=== PATIENT | female | born 1945 | race Caucasian/White ===

== ENCOUNTER 2016-07-22 23:37 | Inpatient (IN) | payer MEDICARE ==
[~2016-07-22] VITALS: Ht 160 cm; Wt 82.6 kg
[2016-07-22] MEDS ORDERED: METOPROLOL TART25 MG ORAL (23:44)
[2016-07-22] MEDS ORDERED: METFORMIN HCL500 M1 ORAL (23:44)
[2016-07-23] VITALS: BP 138/89
[2016-07-23] MEDS ORDERED: Nitroglycerin 2% oint pkt TOPIC ONE
[2016-07-23 00:03] LABS: BASOPHILS % (AUTO) 0.9 % (0.0-2.0); EOSINOPHILS % (AUTO) 2.6 % (0.0-3.0); LYMPHOCYTES % (AUTO) 40.4 % (20.0-45.0); MEAN CORPUSCULAR HEMOGLOBIN 29.2 PG (27.0-31.0); MEAN CORPUSCULAR HGB CONC 33.3 G/DL (32.0-36.0); MEAN CORPUSCULAR VOLUME 88 FL (80-99); MEAN PLATELET VOLUME 7.6 FL (6.5-10.1); MONOCYTES % (AUTO) 6.8 % (1.0-10.0); NEUTROPHILS % (AUTO) 49.2 % (45.0-75.0); PLATELET COUNT 213 K/UL (150-450); RED BLOOD COUNT 5.11 M/UL (4.20-5.40); RED CELL DISTRIBUTION WIDTH 12.2 % (11.6-14.8); WHITE BLOOD COUNT 7.5 K/UL (4.8-10.8)
[2016-07-23 00:27] LABS: PROTHROMBIN TIME 10.5 SEC (9.30-11.50); TROPONIN I < 0.30 ng/mL (<=0.30)
[2016-07-23 00:30] LABS: ALANINE AMINOTRANSFERASE 28 U/L (3-33); ALBUMIN/GLOBULIN RATIO 1.3 (1.0-2.7); ANION GAP 14 (5-15); ASPARTATE AMINO TRANSFERASE 27 U/L (5-40); CALCIUM 9.8 mg/dL (8.6-10.2); CARBON DIOXIDE 28 mEQ/L (20-30); CHLORIDE 98 mEQ/L (98-107); CREATININE 0.9 mg/dL (0.5-0.9); GLOMERULAR FILTRATION RATE > 60 mL/min (>60); HEMOLYSIS 3; MAGNESIUM 2.3 mg/dL (1.7-2.5); POTASSIUM 4.2 mEQ/L (3.4-4.9); SODIUM 140 mEQ/L (135-145); TOTAL PROTEIN 7.2 g/dL (6.6-8.7)
[2016-07-23 00:59] LABS: APPEARANCE,URINE CLEAR; KETONES,URINE NEGATIVE (NEGATIVE); LEUKOCYTE ESTERASE ,URINE 2+ (NEGATIVE); NITRITE,URINE NEGATIVE (NEGATIVE); PH,URINE 7 (4.5-8.0); PROTEIN,URINE NEGATIVE (NEGATIVE); UROBILINOGEN,URINE NORMAL MG/DL (0.0-1.0)
--- NOTE | 2016-07-23 01:20 | Emergency Room Report ---
History of Present Illness General Chief Complaint: Chest Pain Source: Patient, EMS Present Illness HPI The patient presents with chest discomfort. She's had atrial fibrillation in the past and felt that she was heading towards another episode of that. She took extra doses of her metoprolol and another blood pressure medicine that may be benazepril. She also took aspirin. Paramedics gave her nitroglycerin and claim to have given her aspirin also. She denies chest pain but feels discomfort in her chest. She feels extra beats. She also feels discomfort in her jaw that is coming from her chest. She's had carotid endarterectomies. She's not had exercise treadmill for many years. No fevers, chills, cough, sore throat, bleeding problems, weakness, headache, NVD, dysuria, neck pain, extremity pain, change in bowels. Allergies: Coded Allergies: No Known Allergies (Unverified , 07/22/16) Patient History Past Medical History: see triage record Past Surgical History: other - carotid surgery Social History: Denies: smoking Social History Narrative at home Last Menstrual Period: N/A Reviewed Nursing Documentation: PMH: Agreed, PSxH: Agreed Nursing Documentation-PMH Past Medical History: No History, Except For Hx Cardiac Problems: Yes - Afib, Carotid surgery 2014 Hx Hypertension: Yes Review of Systems All Other Systems: negative except mentioned in HPI Physical Exam Vital Signs Date Time Temp Pulse Resp B/P Pulse Ox O2 Delivery O2 Flow Rate FiO2 07/22/16 23:40 97.9 68 16 138/89 98 Room Air Sp02 EP Interpretation: reviewed, normal General Appearance: well appearing, no apparent distress, GCS 15 Head: normocephalic Eyes: bilateral eye PERRL, bilateral eye normal inspection ENT: moist mucus membranes Neck: supple Respiratory: lungs clear, normal breath sounds Cardiovascular #1: irregularly irregular Cardiovascular #2: 2+ radial (R) Gastrointestinal: normal inspection, normal bowel sounds, non tender, no mass, non-distended Musculoskeletal: back normal, gait/station normal, normal range of motion Neurologic: alert, oriented x3, grossly normal Psychiatric: mood/affect normal Skin: normal inspection, warm/dry Medical Decision Making Diagnostic Impression: Primary Impression: Chest pain Qualified Codes: R07.9 - Chest pain, unspecified Additional Impression: Atrial arrhythmia ER Course Patient presents with chest pain. Obvious risk with prior vacular problems. DDx: ami, angina, a fib, other arrhythmia, gerd amongst others. Exam against PE. Emergent evaluation to exclude cardiac emergency. Eval with EKG, labs, cxr. Treatment with nitrolpaste. Patient declines other analgesics. EKG with atrial arrhythmia, but not a fib. CXR normal. Labs with negative troponin. Improved with observation - while sleeping, less ectopy. Needs cardiac monitoring and repeat troponins. Patient admitted tele - Dr. Romero. Laboratory Tests Test 07/22/16 23:50 07/23/16 00:35 White Blood Count 7.5 K/UL (4.8-10.8) Red Blood Count 5.11 M/UL (4.20-5.40) Hemoglobin 14.9 G/DL (12.0-16.0) Hematocrit 44.9 % (37.0-47.0) Mean Corpuscular Volume 88 FL (80-99) Mean Corpuscular Hemoglobin 29.2 PG (27.0-31.0) Mean Corpuscular Hemoglobin Concent 33.3 G/DL (32.0-36.0) Red Cell Distribution Width 12.2 % (11.6-14.8) Platelet Count 213 K/UL (150-450) Mean Platelet Volume 7.6 FL (6.5-10.1) Neutrophils (%) (Auto) 49.2 % (45.0-75.0) Lymphocytes (%) (Auto) 40.4 % (20.0-45.0) Monocytes (%) (Auto) 6.8 % (1.0-10.0) Eosinophils (%) (Auto) 2.6 % (0.0-3.0) Basophils (%) (Auto) 0.9 % (0.0-2.0) Prothrombin Time 10.5 SEC (9.30-11.50) Prothrombin Time INR 1.0 (0.9-1.1) PTT 27 SEC (23-33) Sodium Level 140 mEQ/L (135-145) Potassium Level 4.2 mEQ/L (3.4-4.9) Chloride Level 98 mEQ/L (98-107) Carbon Dioxide Level 28 mEQ/L (20-30) Anion Gap 14 (5-15) Blood Urea Nitrogen 17 mg/dL (7-23) Creatinine 0.9 mg/dL (0.5-0.9) Estimate Glomerular Filtration Rate > 60 mL/min (>60) Glucose Level 120 mg/dL (74-106) H Calcium Level 9.8 mg/dL (8.6-10.2) Magnesium Level 2.3 mg/dL (1.7-2.5) Total Bilirubin 0.4 mg/dL (0.0-1.2) Aspartate Amino Transferase (AST) 27 U/L (5-40) Alanine Aminotransferase (ALT) 28 U/L (3-33) Alkaline Phosphatase 106 U/L (35-104) H Total Creatine Kinase 74 U/L (26-140) Troponin I < 0.30 ng/mL (<=0.30) Pro-B-Type Natriuretic Peptide 121 pg/mL (0-125) Total Protein 7.2 g/dL (6.6-8.7) Albumin 4.1 g/dL (3.5-5.2) Globulin 3.1 g/dL Albumin/Globulin Ratio 1.3 (1.0-2.7) Urine Color Yellow Urine Appearance Clear Urine pH 7 (4.5-8.0) Urine Specific [place] 1.010 (1.005-1.035) Urine Protein Negative (NEGATIVE) Urine Glucose (UA) Negative (NEGATIVE) Urine Ketones Negative (NEGATIVE) Urine Occult Blood Negative (NEGATIVE) Urine Nitrite Negative (NEGATIVE) Urine Bilirubin Negative (NEGATIVE) Urine Urobilinogen Normal MG/DL (0.0-1.0) Urine Leukocyte Esterase 2+ (NEGATIVE) H Urine RBC Pending Urine WBC Pending Urine Squamous Epithelial Cells Pending Urine Bacteria Pending Urine Opiates Screen Negative (NEGATIVE) Urine Barbiturates Screen Negative (NEGATIVE) Phencyclidine (PCP) Screen Negative (NEGATIVE) Urine Amphetamines Screen Negative (NEGATIVE) Urine Benzodiazepines Screen Negative (NEGATIVE) Urine Cocaine Screen Negative (NEGATIVE) Urine Marijuana (THC) Screen Negative (NEGATIVE) EKG Diagnostic Results Rate: bradycardiac Rhythm: other - pacs ST Segments: no acute changes Rhythm Strip Diag. Results EP Interpretation: yes Rhythm: NSR, other - chiquis with frequent PACs Chest X-Ray Diagnostic Results EP Interpretation: Yes Findings: no consolidation, no effusion, no pneumothorax, no acute cardiopulmonary disease Number of Views: 1 Last Vital Signs Date Time Temp Pulse Resp B/P Pulse Ox O2 Delivery O2 Flow Rate FiO2 07/23/16 16:09 59 07/23/16 16:00 97.0 18 130/62 95 Room Air 07/23/16 12:30 21 Status: improved Disposition: ADMITTED INPATIENT Condition: Serious Referrals: NON PHYSICIAN (PCP) Laz Soler M.D. July 23, 2016 01:20
[2016-07-23 01:29] LABS: RBC,URINE 0-2 /HPF (0 - 2)
[2016-07-23 01:30] LABS: BACTERIA,URINE FEW /HPF; SQUAMOUS EPITHELIAL CELL,UR MANY /LPF (NONE/OCC)
[2016-07-23 01:44] VITALS: BP 109/53
[2016-07-23 03:00] VITALS: BP 142/60
[2016-07-23] MEDS ORDERED: DuoNeb 0.5-3(2.5)mg/3ml neb HHN PRN (07:30)
[2016-07-23] MEDS ORDERED: Miralax 17gm pkt ORAL PRN (07:30)
[2016-07-23] MEDS ORDERED: Ketorolac 30mg Inj IV PRN (07:30)
[2016-07-23] MEDS ORDERED: Diltiazem 25mg/5ml IV PRN (07:30)
[2016-07-23] MEDS ORDERED: Morphine Sulfate 2mg/ml Inj IVP PRN (07:30)
[2016-07-23] MEDS ORDERED: Enalaprilat 2.5mg/2ml Inj IV PRN (07:30)
[2016-07-23] MEDS ORDERED: Nitroglycerin Subl 0.4mg tab (Bottle Of 25) SL PRN (07:30)
[2016-07-23 08:00] VITALS: BP 128/69
[2016-07-23] MEDS ORDERED: Aspirin Baby 81mg ORAL SCH (09:00)
[2016-07-23] MEDS ORDERED: Metoprolol 25mg tab ORAL SCH (09:00)
[2016-07-23 09:22] LABS: TROPONIN I < 0.30 ng/mL (<=0.30)
--- NOTE | 2016-07-23 09:45 | Diagnostic Imaging Report ---
Indication: Chest Pain Comparison: None A single view chest radiograph was obtained. Findings: Cardiomediastinal appearance is within normal limits for age. Pulmonary vascularity is appropriate. Aorta is mildly ectatic. The diaphragmatic contour is smooth and costophrenic angles are sharp. No pleural effusions are identified. The bones are osteopenic. Impression: No acute findings
--- NOTE | 2016-07-23 10:17 | Cardiology Progress Note ---
Assessment/Plan Assessment/Plan palpitation pvc ?cp hx of paf last one 08/2015 declined anticoagulation pvd s/p r cea mild subclavian artery stenosis "insulin resistance" serial enzyme echo ekg tele observation orthostatic vital statin all discussed (previously not tolerant of lipitor but has vinh zocor ) ecotrin dtr is a function med md and tell pt not to take convectional meds want testing done at [facility] if needed [id number] Objective Last 24 Hour Vital Signs Date Time Temp Pulse Resp B/P Pulse Ox O2 Delivery O2 Flow Rate FiO2 07/23/16 08:54 57 126/69 07/23/16 08:00 97.2 52 18 128/69 97 Room Air 07/23/16 04:00 56 07/23/16 03:00 97.3 67 18 142/60 97 Room Air 07/23/16 02:25 97.9 54 16 109/53 96 Room Air 07/23/16 01:44 97.9 54 16 109/53 96 Room Air 07/23/16 00:00 68 16 Room Air 07/23/16 00:00 97.9 84 16 138/89 98 Room Air 07/22/16 23:59 138/89 07/22/16 23:40 97.9 68 16 138/89 98 Room Air Laboratory Tests Test 07/22/16 23:50 07/23/16 00:35 07/23/16 08:20 White Blood Count 7.5 K/UL (4.8-10.8) Red Blood Count 5.11 M/UL (4.20-5.40) Hemoglobin 14.9 G/DL (12.0-16.0) Hematocrit 44.9 % (37.0-47.0) Mean Corpuscular Volume 88 FL (80-99) Mean Corpuscular Hemoglobin 29.2 PG (27.0-31.0) Mean Corpuscular Hemoglobin Concent 33.3 G/DL (32.0-36.0) Red Cell Distribution Width 12.2 % (11.6-14.8) Platelet Count 213 K/UL (150-450) Mean Platelet Volume 7.6 FL (6.5-10.1) Neutrophils (%) (Auto) 49.2 % (45.0-75.0) Lymphocytes (%) (Auto) 40.4 % (20.0-45.0) Monocytes (%) (Auto) 6.8 % (1.0-10.0) Eosinophils (%) (Auto) 2.6 % (0.0-3.0) Basophils (%) (Auto) 0.9 % (0.0-2.0) Prothrombin Time 10.5 SEC (9.30-11.50) Prothromb Time International Ratio 1.0 (0.9-1.1) Activated Partial Thromboplast Time 27 SEC (23-33) Sodium Level 140 mEQ/L (135-145) Potassium Level 4.2 mEQ/L (3.4-4.9) Chloride Level 98 mEQ/L (98-107) Carbon Dioxide Level 28 mEQ/L (20-30) Anion Gap 14 (5-15) Blood Urea Nitrogen 17 mg/dL (7-23) Creatinine 0.9 mg/dL (0.5-0.9) Estimat Glomerular Filtration Rate > 60 mL/min (>60) Glucose Level 120 mg/dL (74-106) H Calcium Level 9.8 mg/dL (8.6-10.2) Magnesium Level 2.3 mg/dL (1.7-2.5) Total Bilirubin 0.4 mg/dL (0.0-1.2) Aspartate Amino Transf (AST/SGOT) 27 U/L (5-40) Alanine Aminotransferase (ALT/SGPT) 28 U/L (3-33) Alkaline Phosphatase 106 U/L (35-104) H Total Creatine Kinase 74 U/L (26-140) Troponin I < 0.30 ng/mL (<=0.30) < 0.30 ng/mL (<=0.30) Pro-B-Type Natriuretic Peptide 121 pg/mL (0-125) Total Protein 7.2 g/dL (6.6-8.7) Albumin 4.1 g/dL (3.5-5.2) Globulin 3.1 g/dL Albumin/Globulin Ratio 1.3 (1.0-2.7) Urine Color Yellow Urine Appearance Clear Urine pH 7 (4.5-8.0) Urine Specific [place] 1.010 (1.005-1.035) Urine Protein Negative (NEGATIVE) Urine Glucose (UA) Negative (NEGATIVE) Urine Ketones Negative (NEGATIVE) Urine Occult Blood Negative (NEGATIVE) Urine Nitrite Negative (NEGATIVE) Urine Bilirubin Negative (NEGATIVE) Urine Urobilinogen Normal MG/DL (0.0-1.0) Urine Leukocyte Esterase 2+ (NEGATIVE) H Urine RBC 0-2 /HPF (0 - 2) Urine WBC 2-4 /HPF (0 - 2) Urine Squamous Epithelial Cells Many /LPF (NONE/OCC) H Urine Bacteria Few /HPF (NONE) Urine Opiates Screen Negative (NEGATIVE) Urine Barbiturates Screen Negative (NEGATIVE) Phencyclidine (PCP) Screen Negative (NEGATIVE) Urine Amphetamines Screen Negative (NEGATIVE) Urine Benzodiazepines Screen Negative (NEGATIVE) Urine Cocaine Screen Negative (NEGATIVE) Urine Marijuana (THC) Screen Negative (NEGATIVE) ALVARO ROBBINS July 23, 2016 10:17
[2016-07-23] MEDS ORDERED: NovoLOG Insulin Flexpen SUBQ SCH ×2 (11:30→16:30)
[2016-07-23 12:00] VITALS: BP 124/56
--- NOTE | 2016-07-23 13:28 | History and Physical ---
History of Present Illness General Date patient seen: July 23, 2016 Reason for Hospitalization: Chest Pain Present Illness HPI 71 year of female with hx of paroxysmal atrial BIBA from home c/o medial sternal chest discomfort non-radiating x 1 hour. Pt also c/o BARNES since she came in facility. Pt felt that she has irregular heart beat and or has afib. She didn't take her pulse. She was hypertensive in ER and admitted to [facility] for further work up. Allergies: Coded Allergies: No Known Allergies (Unverified , 07/22/16) Medication History Scheduled Metformin Hcl* (Metformin Hcl*), 500 MG ORAL TWICE A DAY, (Reported) Metoprolol Tartrate* (Metoprolol Tartrate*), 25 MG ORAL EVERY 12 HOURS, ( Reported) Patient History Healthcare decision maker Resuscitation status Full Code Advanced Directive on File No Past Medical/Surgical History Past Medical/Surgical History: (1) Atrial arrhythmia Review of Systems All Other Systems: negative except mentioned in HPI Physical Exam General Appearance: WD/WN HEENT: normocephalic, atraumatic Neck: non-tender, normal alignment Respiratory/Chest: chest wall non-tender, lungs clear Cardiovascular/Chest: normal peripheral pulses, normal rate Abdomen: normal bowel sounds, non tender Genitourinary/Rectal: normal genital exam, normal rectal exam Extremities: normal range of motion Skin Exam: normal pigmentation Neurologic: training assistant II-XII grossly normal Last 24 Hour Vital Signs Date Time Temp Pulse Resp B/P Pulse Ox O2 Delivery O2 Flow Rate FiO2 07/23/16 12:30 63 18 Room Air 21 07/23/16 12:00 97.0 61 16 124/56 94 Room Air 07/23/16 08:54 57 126/69 07/23/16 08:00 97.2 52 18 128/69 97 Room Air 07/23/16 04:00 56 07/23/16 03:00 97.3 67 18 142/60 97 Room Air 07/23/16 02:25 97.9 54 16 109/53 96 Room Air 07/23/16 01:44 97.9 54 16 109/53 96 Room Air 07/23/16 00:00 68 16 Room Air 07/23/16 00:00 97.9 84 16 138/89 98 Room Air 07/22/16 23:59 138/89 07/22/16 23:40 97.9 68 16 138/89 98 Room Air Laboratory Tests Test 07/22/16 23:50 07/23/16 00:35 07/23/16 08:20 07/23/16 08:25 White Blood Count 7.5 K/UL (4.8-10.8) Red Blood Count 5.11 M/UL (4.20-5.40) Hemoglobin 14.9 G/DL (12.0-16.0) Hematocrit 44.9 % (37.0-47.0) Mean Corpuscular Volume 88 FL (80-99) Mean Corpuscular Hemoglobin 29.2 PG (27.0-31.0) Mean Corpuscular Hemoglobin Concent 33.3 G/DL (32.0-36.0) Red Cell Distribution Width 12.2 % (11.6-14.8) Platelet Count 213 K/UL (150-450) Mean Platelet Volume 7.6 FL (6.5-10.1) Neutrophils (%) (Auto) 49.2 % (45.0-75.0) Lymphocytes (%) (Auto) 40.4 % (20.0-45.0) Monocytes (%) (Auto) 6.8 % (1.0-10.0) Eosinophils (%) (Auto) 2.6 % (0.0-3.0) Basophils (%) (Auto) 0.9 % (0.0-2.0) Prothrombin Time 10.5 SEC (9.30-11.50) Prothromb Time International Ratio 1.0 (0.9-1.1) Activated Partial Thromboplast Time 27 SEC (23-33) Sodium Level 140 mEQ/L (135-145) Potassium Level 4.2 mEQ/L (3.4-4.9) Chloride Level 98 mEQ/L (98-107) Carbon Dioxide Level 28 mEQ/L (20-30) Anion Gap 14 (5-15) Blood Urea Nitrogen 17 mg/dL (7-23) Creatinine 0.9 mg/dL (0.5-0.9) Estimat Glomerular Filtration Rate > 60 mL/min (>60) Glucose Level 120 mg/dL (74-106) H Calcium Level 9.8 mg/dL (8.6-10.2) Magnesium Level 2.3 mg/dL (1.7-2.5) Total Bilirubin 0.4 mg/dL (0.0-1.2) Aspartate Amino Transf (AST/SGOT) 27 U/L (5-40) Alanine Aminotransferase (ALT/SGPT) 28 U/L (3-33) Alkaline Phosphatase 106 U/L (35-104) H Total Creatine Kinase 74 U/L (26-140) Troponin I < 0.30 ng/mL (<=0.30) < 0.30 ng/mL (<=0.30) Pro-B-Type Natriuretic Peptide 121 pg/mL (0-125) Total Protein 7.2 g/dL (6.6-8.7) Albumin 4.1 g/dL (3.5-5.2) Globulin 3.1 g/dL Albumin/Globulin Ratio 1.3 (1.0-2.7) Urine Color Yellow Urine Appearance Clear Urine pH 7 (4.5-8.0) Urine Specific [place] 1.010 (1.005-1.035) Urine Protein Negative (NEGATIVE) Urine Glucose (UA) Negative (NEGATIVE) Urine Ketones Negative (NEGATIVE) Urine Occult Blood Negative (NEGATIVE) Urine Nitrite Negative (NEGATIVE) Urine Bilirubin Negative (NEGATIVE) Urine Urobilinogen Normal MG/DL (0.0-1.0) Urine Leukocyte Esterase 2+ (NEGATIVE) H Urine RBC 0-2 /HPF (0 - 2) Urine WBC 2-4 /HPF (0 - 2) Urine Squamous Epithelial Cells Many /LPF (NONE/OCC) H Urine Bacteria Few /HPF (NONE) Urine Opiates Screen Negative (NEGATIVE) Urine Barbiturates Screen Negative (NEGATIVE) Phencyclidine (PCP) Screen Negative (NEGATIVE) Urine Amphetamines Screen Negative (NEGATIVE) Urine Benzodiazepines Screen Negative (NEGATIVE) Urine Cocaine Screen Negative (NEGATIVE) Urine Marijuana (THC) Screen Negative (NEGATIVE) Hemoglobin A1c 5.3 % (< 6.0) Height (Feet): 5 Height (Inches): 3.00 Weight (Pounds): 182 Medications Current Medications Medications (Trade) Dose Ordered Sig/Laurie Route PRN Reason Start Time Stop Time Status Last Admin Dose Admin Acetaminophen (Tylenol) 650 mg Q4H PRN ORAL FEVER 07/23/16 07:30 08/22/16 07:29 Albuterol/ Ipratropium (DuoNeb 0.5-3(2.5)mg/3ml) 3 ml Q4H PRN HHN Shortness of Breath 07/23/16 07:30 07/28/16 07:29 Aspirin (ASA) 162 mg DAILY ORAL 07/23/16 09:00 08/22/16 08:59 07/23/16 08:54 Dextrose (Dextrose 50%) STAT PRN IV Hypoglycemia 07/23/16 07:30 08/22/16 07:29 Diltiazem HCl (Cardizem) 10 mg Q1H PRN IV heart rate more than 120, 07/23/16 07:30 08/22/16 07:29 Enalaprilat (Vasotec) 2.5 mg Q6H PRN IV sbp more than 160 07/23/16 07:30 08/22/16 07:29 Heparin Sodium (Porcine) (Heparin 5000 units/ml) 5,000 units EVERY 8 HOURS SUBQ 07/23/16 14:00 08/22/16 13:59 Insulin Aspart (NovoLOG) BEFORE MEALS AND HS SUBQ 07/23/16 11:30 08/22/16 11:29 Ketorolac Tromethamine (Toradol 30mg) 30 mg Q6H PRN IV moderate pain ( 4-6) 07/23/16 07:30 07/28/16 07:29 Metoprolol Tartrate (Lopressor) 25 mg EVERY 12 HOURS ORAL 07/23/16 09:00 08/22/16 08:59 Morphine Sulfate (Morphine Sulfate) 2 mg Q4H PRN IVP severe Pain (Pain Scale 7-10) 07/23/16 07:30 07/30/16 07:29 Nitroglycerin (Ntg) 0.4 mg Q5M PRN SL Prn Chest Pain 07/23/16 07:30 08/22/16 07:29 Ondansetron HCl (Zofran) 4 mg Q6H PRN IVP Nausea & Vomiting 07/23/16 07:30 08/22/16 07:29 Pantoprazole (Protonix) 40 mg DAILY ORAL 07/23/16 09:00 08/22/16 08:59 07/23/16 08:54 Polyethylene Glycol (Miralax) 17 gm DAILYPRN PRN ORAL Constipation 07/23/16 07:30 08/22/16 07:29 Temazepam (Restoril) 15 mg HSPRN PRN ORAL Insomnia 07/23/16 07:30 07/30/16 07:29 Assessment/Plan Problem List: (1) Atrial arrhythmia ICD Codes: I49.8 - Other specified cardiac arrhythmias SNOMED: 11657344 (2) Hypertension ICD Codes: I10 - Essential (primary) hypertension SNOMED: 32015551 (3) Chest pain ICD Codes: R07.9 - Chest pain, unspecified SNOMED: 26138057 (4) Costochondritis ICD Codes: M94.0 - Chondrocostal junction syndrome [Tietze] SNOMED: 14792499 Assessment/Plan serial ekg troponin echo cardiology evaluation AGUSTIN MANN July 23, 2016 13:28
[2016-07-23] MEDS ORDERED: Heparin 5000 units/ml inj SUBQ SCH (14:00)
--- NOTE | 2016-07-23 15:45 | Cardiology Report ---
APPROVED REPORT EXAM: Two-dimensional and M-mode echocardiogram with Doppler and color Doppler. INDICATION LV function M-Mode DIMENSIONS IVSd1.0 (0.7-1.1cm)Left Atrium (MM)3.9 (1.6-4.0cm) LVDd3.8 (3.5-5.6cm)Aortic Root2.3 (2.0-3.7cm) PWd0.6 (0.7-1.1cm)Aortic Cusp Exc.1.5 (1.5-2.0cm) LVDs2.6 (2.5-4.0cm) Normal left ventricular chamber size, systolic function and wall motion. Left ventricular ejection fraction estimated to be 60-65 %. Mild left ventricular hypertrophy by 2-D. Anterior Echo-free space, may be due to pericardial fat or effusion. Left and right atrial sizes at upper limits of normal. Right ventricular chamber size is within normal limits. Mild focal aortic valve sclerosis with adequate cusp excursion. Thickened mitral valve leaflets with normal excursion. Mitral annulus and aortic root calcification. Pulmonic valve not well visualized. Normal tricuspid valve structure. IVC at normal size with physiologic collapse. A color flow and spectral Doppler study was performed and revealed: No aortic regurgitation. reduced left ventricular relaxation c/w mild diastolic dysfunction. Trace mitral regurgitation. Trace tricuspid regurgitation. Tricuspid systolic velocities suggests peak right ventricular systolic pressure of 15 mmHg.
--- NOTE | 2016-07-23 15:46 | Cardiology Report ---
APPROVED REPORT EKG Measurement Heart [id number] Sinus rhythm with frequent premature ventricular complexes Low voltage QRS Borderline ECG
[2016-07-23] MEDS ORDERED: DIOVAN HCT 80MG1 TAB ORAL (15:58)
[2016-07-23 16:00] VITALS: BP 130/62
--- NOTE | 2016-07-23 21:38 | Consultation ---
DATE OF CONSULTATION: 07/23/2016 NOTE: "POOR AUDIO QUALITY" CARDIOLOGY CONSULTATION CONSULTING PHYSICIAN: Ovi Layton M.D. REFERRING PHYSICIAN: Dahiana Romero M.D. REASON FOR REFERRAL: Chest pain. HISTORY OF PRESENT ILLNESS: This is an elderly female who has an alleged history of multiple medical problems as delineated below. The patient's daughter is a functional medicine physician working out of [facility]. She recently moved from [facility] to [place]. She has a history of carotid stenosis and carotid endarterectomy. She has not really been following the conventional treatment as recommendation by her daughter and has had a history of atrial fibrillation, never been on anticoagulation. Last time apparently in atrial fibrillation was a number of years ago, although [facility] records indicate she was in atrial fibrillation back in August 2015. At that time, she declined anticoagulation and was discharged home. She presented to the hospital because of some palpitations and headache that she experienced yesterday. She has mild amount of tightness on the left side of her chest as well. She really is unable to tell any further about the discomfort. nitroglycerin by the paramedics last night and was eventually brought to the emergency room of [facility] and was admitted to the hospital. Eventually, later in the evening, discomfort went away, but her main issue is that she was having a lot of palpitations and she was not sure whether this was related to atrial fibrillation, it was a concern for her. She is also having some pressure in her head as well. She does not have any PND or orthopnea. She has occasional lightheadedness on standing palpitations and no dyspnea on exertion. PAST MEDICAL HISTORY: Extensive and has been documented in [facility] records, which I have had a chance to briefly review some of the more recent ones. She had been recently seen by the breast center at [facility] for itching. She has had breast reduction surgery a number of years back, but has not had a mammogram for a number of years. She also has a history of atrial fibrillation as mentioned and a history of coronary artery disease, unknown details, although she tells me she has had a stress test a number of years ago that was apparently normal. She has a history of hyperlipidemia; a history of breast surgery, nipple duct removed; apparently a history of diabetes mellitus, she calls insulin resistance; history of hyperplasia of the nipples; history of meningioma that was resected; and history of hypertension. She has had a history of left frontal craniotomy, history of carotid endarterectomy on the right side, and she is not allergic to any medications. She has never had any blood clots anywhere. No history of asthma. She has a history of gastritis. No heart attack. No cancer. No stroke. No hepatitis or tuberculosis. She may have been told that she has some mild renal insufficiency, detail is not known to the patient. SOCIAL HISTORY: She has an extensive smoking history off and on, most recently five cigarettes a day, she admits to, but she tells me that she stopped that a few months ago when she was told that a subclavian artery was also stenosed and may require treatment. No alcoholic beverages. No drugs. She lives here in [place] now. REVIEW OF SYSTEMS: Gastrointestinal: She has had some bouts of nausea yesterday, but no vomiting. No diarrhea. No bloody stools or black tarry stools. NEGATIVE. . PULMONARY: She did have cough and cold symptoms some time ago, but that seems to have resolved. Neurologic: Negative. PHYSICAL EXAMINATION: GENERAL: An elderly female, in no apparent respiratory distress. NECK: Supple. No jugular venous distention. LUNGS: Clear to auscultation and percussion. CARDIAC: S1 is normal. S2 is normal. Regular rate. Ectopies are noted. ABDOMEN: Soft and nontender. Positive bowel sounds. EXTREMITIES: There is no edema. She has palpable pulses, dorsalis pedis and radial. LABORATORY AND DIAGNOSTIC VALUES: White count is 7.5, hemoglobin 14.9, and platelet count 213,000. Sodium 140, potassium 4.2, chloride 98, bicarbonate 28, BUN 17, creatinine 0.9, glucose 120, alkaline phosphate 107, and CK 74. Troponin is less than 0.3. Her proBNP is only 121. Albumin is 4.1. Her INR is 1 and PTT is 27. One set of troponin is negative. Second set is still pending. Urine drug screen is unremarkable. Urinalysis shows 2+ leukocyte esterase, 2-4 WBCs, and many squamous epithelials are noted. Chest x-ray is performed in the emergency room. No official reading is available yet. The heart does not appear to be significantly enlarged at all and no significant effusion is noted at least to my reading. The patient's electrocardiogram performed shows basically sinus rhythm. Clear evidence of atrial activity is noted. The patient does have premature ventricular complex on a frequent basis. Telemetry data also reviewed shows sinus rhythm with some premature ventricular complexes being present on some of the strips as well. 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 ASSESSMENT: 1. Palpitation. 2. Chest pain. 3. "Insulin resistance," questionable prediabetes. 4. Carotid stenosis and subclavian stenosis. 5. History of paroxysmal episodes of atrial fibrillation. PLAN: Dr. Romero's patient was seen in cardiac consultation. The patient's symptom of chest pain appears apparently not to be significantly an issue with her. In fact, it sounds like the main reason was headache and maybe palpitations that brought her into the hospital. Nevertheless, she has got several risk factors. She already has prophylactic disease and she is at risk of having coronary disease. She should have serial enzymes and EKGs checked abnormalities she may require further testing. She agrees to take aspirin. She has previously declined anticoagulation when she was at [facility] according to [facility] records. LV function apparently at [facility] has been adequately checked and was normal. There are no records of a stress test at [facility]. She did have an MRI of her brain and that was performed in February 2016. Stable postoperative changes without residual recurrences is what the diagnosis is. Carotid ultrasound has been performed at [facility] as well. Preliminary report shows internal carotid artery is patent with mild stenosis is patent, again with mild stenosis, midsystolic artery. There is a mild stenosis of the subclavian artery also being noted at that time. I will follow the patient along. An echocardiogram will also be performed. I will review that as well. The patient's electrolytes should be checked, specifically magnesium. Potassium appears to be intact. If needed, magnesium supplementation. Orthostatic vitals will also be performed as the patient did have some dizziness on standing as well had her proBNP is quite well. It is possible that if all the testing is negative she may be discharged home with outpatient stress testing, which she would prefer to have done at [facility] instead of [facility]. That may be an option depending on how she does. I have discussed extensively with the patient the need for being on statin in light of the carotid stenosis and her other risk factors. Her daughter has been quite hesitant for her to take any conventional statin medication. The patient has already previously tried some Lipitor that gave her muscle aches, but she apparently tolerated the Zocor. I would start her on Zocor for the time being until we have the results of her testing as necessary. I have requested the patient to follow my recommendations in order for me to be able to help her. If she does not follow the recommendations, it may be difficult for me to prevention long-term. Ovi Layton M.D. DR: JOSE JOB#: [id number] CC:
--- NOTE | 2016-07-24 17:13 | Cardiology Report ---
APPROVED REPORT EKG Measurement Heart [id number] Sinus bradycardia Low voltage QRS Borderline ECG
--- NOTE | 2016-07-24 20:12 | Discharge Summary ---
Discharge Summary Hospital Course Date of Admission July 23, 2016 at 00:17 Date of Discharge July 23, 2016 at 20:20 Admitting Diagnosis CHEST PAIN,ARRYTHMIA HPI Edda Ortez is a 71 year old female who was admitted on July 23, 2016 at 00:17 for Chest Pain,Arrythmia Hospital Course [id number] Discharge Discharge Disposition Patient left AMA Discharge Diagnoses: Madalyn Almanzar NP July 24, 2016 20:12
--- NOTE | 2016-07-25 00:39 | Discharge Summary 2 SIG ---
DATE OF ADMISSION: 07/23/2016 DATE OF DISCHARGE: 07/23/2016 ROUTE SALES DRIVER: Ovi Layton M.D. BRIEF HOSPITAL COURSE: The patient is a 71-year-old female, who was brought in by ambulance because of chest pain, which was located to be midsternal and it was nonradiating that had lasted for one hour. She has history of paroxysmal atrial fibrillation and took aspirin and was given also nitroglycerin by paramedics. On evaluation at ED, EKG showed atrial arrhythmia. Initial troponin was negative. The patient was admitted for cardiac monitoring and was seen by Dr. Layton, and review of electrocardiogram showed basically sinus with no clear evidence of atrial activity noted. The patient does have premature ventricular complex on frequent basis. Telemetry data showed sinus rhythm with some PVCs. There was no evidence of atrial fibrillation on either fishing rod trimmer or EKG. She was recommended the need for being on statins, however, quite hesitant to take the medication. Full treatment was not carried out as the patient signed out against medical advice. FINAL DIAGNOSES: 1. Chest pain. 2. Costochondritis. 3. Hypertension. 4. Palpitation. 5. Carotid stenosis and subclavian stenosis. 6. History of paroxysmal episodes of atrial fibrillation. Dahiana Romero M.D. I have been assigned to dictate discharge summary on this account and I was not involved in the patient's management. Madalyn Almanzar N.P. DR: WAQAR JOB#: [id number] CC: TIMBO
--- NOTE | 2016-07-25 12:10 | Diagnostic Imaging Report ---
APPROVED REPORT CPT Code: 04882 Present Symptoms Lower Extremity Pain: Bilateral BILATERAL: Imaging reveals a patent deep venous system bilaterally. There is no evidence of thrombus within the femoral, popliteal or tibial segments. The greater saphenous veins are also within normal limits. Doppler indicates normal spontaneous flow within these segments.
== END 2016-07-23 20:20 | disposition left against medical advice (07) | DRG 206 ==
LOC: EDBD 23:37 → EMR 23:56 → 2E 07-23 00:17 → EDBEDREQ 07-23 01:19
DX: M94.0 Chondrocostal junction syndrome [Tietze] (principal); I48.0 Paroxysmal atrial fibrillation; I65.29 Occlusion and stenosis of unspecified carotid artery; R07.9 Chest pain, unspecified; I10 Essential (primary) hypertension; I70.8 Atherosclerosis of other arteries; Z87.891 Personal history of nicotine dependence; I49.3 Ventricular premature depolarization; R73.03 Prediabetes
CPT/HCPCS: 36415; 71010; 80053; 80300; 81003; 82550; 82962; 83036; 83735; 83880; 84484; 85025; 85610; 85730; 93005; 93306; 93970; 94664; J1815